=== PATIENT | female | born 1965 | race Caucasian/White ===

== ENCOUNTER 2017-08-15 21:20 | Emergency (ER) | payer SELFPAY ==
[~2017-08-15 21:20] MED LIST: BACT800T5 PO; CLIN1CAP5 PO
[2017-08-15 21:31] VITALS: BP 131/91; PULSE 66; RESP 20; TEMP 97.2; O2SAT 95
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
== END 2017-08-15 22:00 ==
LOC: NEDAMB 21:20
DX: F10.29 Alcohol dependence with unspecified alcohol-induced disorder (principal); F17.200 Nicotine dependence, unspecified, uncomplicated
CPT/HCPCS: 99281

== ENCOUNTER 2017-09-17 22:55 | Observation (INO) ==
--- NOTE | 2017-09-17 23:30 | ED ---
HPI General Chief complaint: Seizure Stated complaint: Seizure/Evac Time Seen by Provider: 09/17/17 23:19 Source: patient, EMS and other (A coworker that arrived at her bedside) History of Present Illness HPI narrative: The patient is a 51 year old female who presents to the [facility] emergency department with a history of reportedly falling at her work prior to arrival. The patient was working at the [employer] when she fell to the ground and appeared to have seizure activity. This was reported generalized clonic tonic seizure activity. It occurred for an unspecified period of time. The patient was confused after the fall. The patient denies having any prior history of seizures. The patient reports having a headache. She denies having any neck pain. She denies having any numbness or tingling to her extremities. She denies having any weakness or extremities. She was brought in by ambulance services in full C-spine immobilization on a backboard. She denies having any extremity pain. She denies having any chest pain, chest pressure, or shortness of breath. Otherwise on review of systems, she denies having any known recent fevers, cough or congestion, abdominal pain, vomiting, diarrhea, urinary symptoms, or other neurologic symptoms. The patient reports that she does drink alcohol on a daily basis. She reports that she normally has 2 drinks per day. She denies getting tremulous when she does not drink. She denies any prior history of withdrawal symptoms. Related Data Home Medications Medication Instructions Recorded Confirmed No Known Home Medications 09/18/17 09/18/17 albuterol sulfate 1 puff INHALATION Q4-6H PRN 09/18/17 09/18/17 Allergies Allergy/AdvReac Type Severity Reaction Status Date / Time No Known Allergies Unknown Uncoded 08/15/17 21:40 Review of Systems ROS Unobtainable All other systems reviewed negative except as stated in HPI PMFSH Social History Social History Substance History: No History of Abuse Second Hand Smoke Exposure: Yes Smoking Status: Current every day smoker Tobacco Type: Cigarettes Cigarettes Per Day: 4 How Often Do You Have a Drink Containing Alcohol: 4 or more times a week Recent Travel in [facility] within the Last 8 Weeks: No Recent Out of Country Travel within the Last 8 Weeks: No Exam Narrative Exam Narrative: General: The patient is a well-developed well-nourished female, tremulous on examination , otherwise in no in full C-spine immobilization on a backboard. Head and Neck exam: Head is normocephalic atraumatic. The patient has scalp tenderness on the right side with a palpable hematoma. Eyes: EOMI, pupils are equal round and reactive to light. Nose: Midline septum with pink mucous membranes Mouth: Dentition unremarkable. Moist mucus membranes. Posterior oropharynx is not erythematous. No tonsillar hypertrophy. Uvula midline. Airway patent. Neck: The patient is a cervical collar in place. The patient's trachea is midline. Cardiovascular: Regular rate and rhythm without murmurs, gallops, or rubs. No pulse deficit to the extremities on simultaneous auscultation and palpation of her radial artery. Lungs: Clear to auscultation bilaterally. No wheezes, rhonchi, or rales. Abdomen: Soft, without tenderness to palpation in all 4 quadrants of the abdomen. No guarding, rebound, or rigidity. Normal bowel sounds are audible. Negative Aranda's sign. No tenderness on palpation of McBurney's point. Extremities: No clubbing, cyanosis, or edema. 2+ pulses in all 4 extremities. No extremity pain on active range of motion. No step-off or crepitus. No shortening or rotation. Back: The patient was logrolled off the backboard. No spinous process tenderness to palpation. No costovertebral angle tenderness to palpation. Neurologic Exam: Cranial nerves 2-12 were intact on exam. Strength is 5/5 in all 4 extremities. No sensory deficits noted. The patient is noted to be tremulous. Skin Exam: No rash noted. Intact skin that is warm and dry. Course Hospital Course: During the course of the patient's emergency department visit, the patient's history, examination, and differential diagnosis were reviewed with the patient. The patient was placed on a cardiac nurse practitioner with oximetry and frequent blood pressure monitoring. The patient had IV access obtained and blood work sent for analysis. The patient was brought in by ambulance services. The patient was noted by the nurse to have generalized tonic-clonic seizure activity noted shortly after arrival. The patient was initially provided Ativan 2 mg IV to avoid a seizure. The tremulousness also improved, therefore the patient's symptoms could be related to alcohol withdrawal. Further workup is pending. Reevaluation(s) Reevaluation #1: The patient is feeling improved after Ativan 2 mg IV. The patient is back to her baseline of mentation. The patient will be admitted to the hospital for continued evaluation of recurrent seizure activity and had a head injury. The patient's results were discussed with the patient, including the plan of care. I explained that further testing and/ or monitoring is indicated based on the patient's history, examination, and/ or laboratory findings. Therefore, I recommended admission for additional evaluation. The patient expressed understanding and was agreeable with this plan. The patient was admitted to the hospital in guarded condition and sent to a bed under the care of the [facility] service. Consultations Consultation #1: The patient's case including history, pertinent physical examination findings, and laboratory studies were discussed with Dr. Oneill. It was agreed that the patient would be admitted to the [facility] service. The patient's results were discussed with the patient, including the plan of care. I explained that further testing and/ or monitoring is indicated based on the patient's history, examination, and/ or laboratory findings. Therefore, I recommended admission for additional evaluation. The patient expressed understanding and was agreeable with this plan. The patient was admitted to the hospital in guarded condition and sent to a bed under the care of the [facility] service. Initial Documented Vital Signs Temperature 98.6 F 09/17/17 23:03 Pulse Rate 75 09/17/17 23:03 Respiratory Rate 18 09/17/17 23:03 Blood Pressure 159/78 H 09/17/17 23:03 Pulse Oximetry 97 09/17/17 23:03 Last Documented Vital Signs Temperature 97.9 F 09/19/17 12:00 Pulse Rate 73 09/19/17 12:00 Respiratory Rate 16 09/19/17 12:00 Blood Pressure 140/87 09/19/17 12:00 Pulse Oximetry 96 09/19/17 12:00 Medical Decision Making MDM Narrative Medical decision making narrative: The patients laboratory studies remarkable for a CBC, CMP that shows no acute abnormality, alcohol level is less than 3. Radiology studies were remarkable for a CT scan of the brain that shows a cephalohematoma on the right side of the scalp, CT scan of the C-spine shows no acute abnormality. Differential Diagnosis Differential Diagnosis: Seizure activity caused by intracranial abnormality, versus withdrawal syndrome, versus substance intoxication, versus electrolyte abnormality Medical Records Medical records reviewed: Yes I reviewed the patient's medical records. Lab Data Lab results reviewed: Yes I reviewed the patient's lab results. Result diagrams: 09/19/17 06:25 09/19/17 06:25 Lab Results 09/17/17 09/17/17 09/17/17 Range/Units 23:40 23:40 23:40 WBC 5.2 (4.0-11.0) th/mm3 RBC 4.32 (4.00-5.30) mil/mm3 Hgb 14.1 (11.6-15.3) gm/dL Hct 42.7 (35.0-46.0) % MCV 99.0 (80.0-100.0) fL MCH 32.7 (27.0-34.0) pg MCHC 33.0 (32.0-36.0) % RDW 13.2 (11.6-17.2) % Plt Count 154 (150-450) th/mm3 MPV 7.7 (7.0-11.0) fL Neut % (Auto) 66.2 (16.0-70.0) % Lymph % (Auto) 22.9 (9.0-44.0) % Gallia % (Auto) 9.7 H (0.0-8.0) % Eos % (Auto) 0.2 (0.0-4.0) % Baso % (Auto) 1.0 (0.0-2.0) % Neut # (Auto) 3.4 (1.8-7.7) th/mm3 Lymph # (Auto) 1.2 (1.0-4.8) th/mm3 Gallia # (Auto) 0.5 (0.0-0.9) th/mm3 Eos # (Auto) 0.0 (0.0-0.4) th/mm3 Baso # (Auto) 0.1 (0.0-0.2) th/mm3 WBC Differential . Differential Comment Auto diff final Sodium 136 (136-145) meq/L Potassium 4.4 (3.5-5.1) meq/L Chloride 100 (98-107) meq/L Carbon Dioxide 23.6 (21.0-32.0) meq/L Anion Gap 12 (5-15) meq/L BUN 9 (7-18) mg/dL Creatinine 0.55 (0.50-1.00) mg/dL Estimated GFR Greater than 89 (>89) mL/min POC Glucose (68-110) mg/dl Random Glucose 88 (74-106) mg/dL Calcium 8.9 (8.5-10.1) mg/dL Magnesium 1.5 (1.5-2.5) mg/dL Total Bilirubin 1.2 H (0.2-1.0) mg/dL AST 92 H (15-37) U/L ALT 56 H (10-53) U/L Alkaline Phosphatase 69 (45-117) U/L Total Creatine Kinase 232 H (26-192) U/L CK-MB (CK-2) 3.4 (0.5-3.6) ng/mL CK-MB (CK-2) % 1.5 (0.0-4.0) % Troponin I Less than 0.02 L (0.02-0.05) ng/mL B-Natriuretic Peptide 64 (0-100) pg/mL Total Protein 7.6 (6.4-8.2) g/dL Albumin 3.9 (3.4-5.0) g/dL Lipase 59 L (73-393) U/L Urine Color (Yellw/Straw) Urine Clarity (Clear) Urine pH (5.0-8.5) Ur Specific Hertel (1.002-1.035) Urine Protein (Neg-Trace) mg/dL Urine Glucose (UA) (Negative) mg/dL Urine Ketones (Negative) mg/dL Urine Occult Blood (Negative) Urine Nitrate (Negative) Urine Bilirubin (Negative) Urine Urobilinogen (Less than 2) mg/dL Ur Leukocyte Esterase (Negative) Urine RBC (0-3) /hpf Urine WBC (0-5) /hpf Ur Squamous Epith Cells (0-5) /hpf Urine Mucus (Occasional) /lpf Urine Opiates Screen (Neg) Ur Barbiturates Screen (Neg) Ur Amphetamines Screen (Neg) U Benzodiazepines Scrn (Neg) Urine Cocaine Screen (Neg) U Cannabinoids Screen (Neg) Serum Alcohol Less than 3 (0-5) mg/dL 09/18/17 09/18/17 09/18/17 Range/Units 00:35 00:35 06:02 WBC (4.0-11.0) th/mm3 RBC (4.00-5.30) mil/mm3 Hgb (11.6-15.3) gm/dL Hct (35.0-46.0) % MCV (80.0-100.0) fL MCH (27.0-34.0) pg MCHC (32.0-36.0) % RDW (11.6-17.2) % Plt Count (150-450) th/mm3 MPV (7.0-11.0) fL Neut % (Auto) (16.0-70.0) % Lymph % (Auto) (9.0-44.0) % Gallia % (Auto) (0.0-8.0) % Eos % (Auto) (0.0-4.0) % Baso % (Auto) (0.0-2.0) % Neut # (Auto) (1.8-7.7) th/mm3 Lymph # (Auto) (1.0-4.8) th/mm3 Gallia # (Auto) (0.0-0.9) th/mm3 Eos # (Auto) (0.0-0.4) th/mm3 Baso # (Auto) (0.0-0.2) th/mm3 WBC Differential Differential Comment Sodium (136-145) meq/L Potassium (3.5-5.1) meq/L Chloride (98-107) meq/L Carbon Dioxide (21.0-32.0) meq/L Anion Gap (5-15) meq/L BUN (7-18) mg/dL Creatinine (0.50-1.00) mg/dL Estimated GFR (>89) mL/min POC Glucose 81 (68-110) mg/dl Random Glucose (74-106) mg/dL Calcium (8.5-10.1) mg/dL Magnesium (1.5-2.5) mg/dL Total Bilirubin (0.2-1.0) mg/dL AST (15-37) U/L ALT (10-53) U/L Alkaline Phosphatase (45-117) U/L Total Creatine Kinase (26-192) U/L CK-MB (CK-2) (0.5-3.6) ng/mL CK-MB (CK-2) % (0.0-4.0) % Troponin I (0.02-0.05) ng/mL B-Natriuretic Peptide (0-100) pg/mL Total Protein (6.4-8.2) g/dL Albumin (3.4-5.0) g/dL Lipase (73-393) U/L Urine Color Yellow (Yellw/Straw) Urine Clarity Hazy H (Clear) Urine pH 6.0 (5.0-8.5) Ur Specific Hertel 1.015 (1.002-1.035) Urine Protein Negative (Neg-Trace) mg/dL Urine Glucose (UA) Negative (Negative) mg/dL Urine Ketones 80 or greater (Negative) mg/dL Urine Occult Blood Negative (Negative) Urine Nitrate Negative (Negative) Urine Bilirubin Negative (Negative) Urine Urobilinogen Less than 2 (Less than 2) mg/dL Ur Leukocyte Esterase Moderate H (Negative) Urine RBC 1 (0-3) /hpf Urine WBC 54 H (0-5) /hpf Ur Squamous Epith Cells 1 (0-5) /hpf Urine Mucus Few H (Occasional) /lpf Urine Opiates Screen Neg (Neg) Ur Barbiturates Screen Neg (Neg) Ur Amphetamines Screen Neg (Neg) U Benzodiazepines Scrn Neg (Neg) Urine Cocaine Screen Neg (Neg) U Cannabinoids Screen Neg (Neg) Serum Alcohol (0-5) mg/dL 09/18/17 09/19/17 09/19/17 Range/Units 08:11 06:25 06:25 WBC 4.8 (4.0-11.0) th/mm3 RBC 4.11 (4.00-5.30) mil/mm3 Hgb 13.6 (11.6-15.3) gm/dL Hct 40.4 (35.0-46.0) % MCV 98.3 (80.0-100.0) fL MCH 33.0 (27.0-34.0) pg MCHC 33.5 (32.0-36.0) % RDW 12.9 (11.6-17.2) % Plt Count 127 L (150-450) th/mm3 MPV 8.2 (7.0-11.0) fL Neut % (Auto) 62.7 (16.0-70.0) % Lymph % (Auto) 25.4 (9.0-44.0) % Gallia % (Auto) 9.6 H (0.0-8.0) % Eos % (Auto) 1.7 (0.0-4.0) % Baso % (Auto) 0.6 (0.0-2.0) % Neut # (Auto) 3.0 (1.8-7.7) th/mm3 Lymph # (Auto) 1.2 (1.0-4.8) th/mm3 Gallia # (Auto) 0.5 (0.0-0.9) th/mm3 Eos # (Auto) 0.1 (0.0-0.4) th/mm3 Baso # (Auto) 0.0 (0.0-0.2) th/mm3 WBC Differential . Differential Comment Auto diff final Sodium 136 (136-145) meq/L Potassium 3.2 L D (3.5-5.1) meq/L Chloride 102 (98-107) meq/L Carbon Dioxide 22.1 (21.0-32.0) meq/L Anion Gap 12 (5-15) meq/L BUN 5 L (7-18) mg/dL Creatinine 0.38 L (0.50-1.00) mg/dL Estimated GFR Greater than 89 (>89) mL/min POC Glucose 78 (68-110) mg/dl Random Glucose 89 (74-106) mg/dL Calcium 8.2 L (8.5-10.1) mg/dL Magnesium (1.5-2.5) mg/dL Total Bilirubin 1.0 (0.2-1.0) mg/dL AST 65 H (15-37) U/L ALT 41 (10-53) U/L Alkaline Phosphatase 56 (45-117) U/L Total Creatine Kinase (26-192) U/L CK-MB (CK-2) (0.5-3.6) ng/mL CK-MB (CK-2) % (0.0-4.0) % Troponin I (0.02-0.05) ng/mL B-Natriuretic Peptide (0-100) pg/mL Total Protein 6.9 D (6.4-8.2) g/dL Albumin 3.4 (3.4-5.0) g/dL Lipase (73-393) U/L Urine Color (Yellw/Straw) Urine Clarity (Clear) Urine pH (5.0-8.5) Ur Specific Hertel (1.002-1.035) Urine Protein (Neg-Trace) mg/dL Urine Glucose (UA) (Negative) mg/dL Urine Ketones (Negative) mg/dL Urine Occult Blood (Negative) Urine Nitrate (Negative) Urine Bilirubin (Negative) Urine Urobilinogen (Less than 2) mg/dL Ur Leukocyte Esterase (Negative) Urine RBC (0-3) /hpf Urine WBC (0-5) /hpf Ur Squamous Epith Cells (0-5) /hpf Urine Mucus (Occasional) /lpf Urine Opiates Screen (Neg) Ur Barbiturates Screen (Neg) Ur Amphetamines Screen (Neg) U Benzodiazepines Scrn (Neg) Urine Cocaine Screen (Neg) U Cannabinoids Screen (Neg) Serum Alcohol (0-5) mg/dL Imaging Data Radiologist's impression: ITS Impressions Head CT 09/18/17 00:00 CONCLUSION: 1. Large left parieto-occipital scalp hematoma without evidence of skull fracture. 2. No acute findings in the brain. Cervical Spine CT 09/18/17 00:03 CONCLUSION: 1. No evidence of fracture or spondylolisthesis. 2. Mild spondylosis with bony neural foraminal stenosis as described above. ECG Data Attestation: I personally reviewed and interpreted this ECG as follows: Interpretation: The patient had an EKG done on arrival. The patient's EKG reveals a sinus rhythm heart rate of 83, QRS duration is 76 ms, QTC [address] segment elevation is noted per T waves are inverted in V1. Discharge Plan Discharge Disposition Patient Disposition: Left Against Medical Advice Discharge Order Discharge Orders: AMA Discharge (Routine); Ordered 09/19/17 Ordered By: Natty Cunningham Physicians Team ED Provider: Ana Rosa Echevarria Primary Care Provider: UNKNOWN, Attending Provider: Yvette Garcia Status ED Status: Left Department Discharge Information Discharge Date/Time: 09/18/17 04:26
[2017-09-17 23:54] LABS: Baso # (Auto) 0.1 th/mm3 (0.0-0.2); Eos % (Auto) 0.2 % (0.0-4.0); Hematocrit 42.7 % (35.0-46.0); Hemoglobin 14.1 gm/dL (11.6-15.3); Lymph # (Auto) 1.2 th/mm3 (1.0-4.8); Lymph % (Auto) 22.9 % (9.0-44.0); Mean Corpuscular Hemoglobin 32.7 pg (27.0-34.0); Mean Platelet Volume 7.7 fL (7.0-11.0); Mono # (Auto) 0.5 th/mm3 (0.0-0.9); Mono % (Auto) 9.7 % (0.0-8.0); Neut # (Auto) 3.4 th/mm3 (1.8-7.7); Neut % (Auto) 66.2 % (16.0-70.0); Platelet Count 154 th/mm3 (150-450); Red Blood Count 4.32 mil/mm3 (4.00-5.30); Red Cell Distribution Width 13.2 % (11.6-17.2); White Blood Count 5.2 th/mm3 (4.0-11.0)
[2017-09-18] MEDS: Sod Chloride 0.9% Inj 1,000 ML IV.CONT SCH ×7 (00:06→22:57)
[2017-09-18 00:18] LABS: Alanine Aminotransferase 56 U/L (10-53); Albumin 3.9 g/dL (3.4-5.0); Anion Gap 12 meq/L (5-15); Aspartate Aminotransferase 92 U/L (15-37); Blood Urea Nitrogen 9 mg/dL (7-18); Calcium 8.9 mg/dL (8.5-10.1); Carbon Dioxide 23.6 meq/L (21.0-32.0); Chloride 100 meq/L (98-107); Glomerular Filtration Rate Greater Than 89 mL/min (>89); Glucose,Random 88 mg/dL (74-106); Lipase 59 U/L (73-393); Magnesium 1.5 mg/dL (1.5-2.5); Potassium 4.4 meq/L (3.5-5.1); Sodium 136 meq/L (136-145)
[2017-09-18 00:21] LABS: Alkaline Phosphatase 69 U/L (45-117); Creatine Kinase 232 U/L (26-192); Total Protein 7.6 g/dL (6.4-8.2)
[2017-09-18 00:35] LABS: CKMB Percent 1.5 % (0.0-4.0); Creatine Kinase MB 3.4 ng/mL (0.5-3.6)
[2017-09-18] MEDS ORDERED: Sod Chloride 0.9% Inj 1,000 ML IV.SIG ONE (00:51)
[2017-09-18] MEDS ORDERED: Thiamine Inj 100 MG in Sodium Chlor 0.9% Inj 100 ML IV.SIG ONE (00:55)
[2017-09-18 01:28] LABS: Bilirubin,Urine Negative (Negative); Clarity,Urine Hazy (Clear); Color,Urine Yellow (Yellw/Straw); Glucose,Urine (UA) Negative (Negative); Leukocyte Esterase,Urine Moderate (Negative); Mucus,Urine Few /lpf (Occasional); Nitrite,Urine Negative (Negative); Specific Gravity,Urine 1.015 (1.002-1.035); Squamous Epithelial Cell,Urine 1 /hpf (0-5)
[2017-09-18 01:29] LABS: Amphetamine Screen,Urine Neg (Neg); Barbiturate Screen,Urine Neg (Neg); Cannabinoid Screen,Urine Neg (Neg); Cocaine Screen,Urine Neg (Neg); Opiate Screen,Urine Neg (Neg)
[2017-09-18] MEDS ORDERED: LORazepam 1 MG Tablet PO PRN (03:15)
[2017-09-18] MEDS ORDERED: Haloperidol Inj 5 MG/ML Ampul IV.PUSH PRN (03:15)
[2017-09-18] MEDS ORDERED: Bisacodyl 10 MG Supp RECTAL PRN (03:17)
--- NOTE | 2017-09-18 03:43 | P.HPIM ---
History of Present Illness Primary Care Physician: UNKNOWN History of Present Illness: This is a 51-year-old female with a PMH of Alcohol Abuse who is brought to the ER by EMS after apparent seizure-like activity at work. Patient works at [employer], coworkers witnessed patient fall to the ground and have seizure-like activity. Noted to have post ictal state at that time. While in the ER, patient had second episode of seizure. Denies previous h/o seizure. Does admit to drinking 2-3 vodka per day, hasn't drank in 2 days. On arrival, BP 159 /78, HR 75, O2 sat 97% on RA, Afebrile. CBC unremarkable. LFTs mildly elevated , otherwise chemistry unremarkable. UA positive for UTI. Urine Drug Screen negative. Alcohol negative. CT Head with large left parieto-occipital scalp hematoma, no skull fracture. CT C-spine negative for acute fracture. - Diagnosis (1) Seizure (2) Alcohol abuse (3) UTI (urinary tract infection) - Inpatient Certification If this patient has been admitted as an Inpatient: I certify that the inpatient services were ordered in accordance with Medicare regulations governing the order. This includes certification that hospital inpatient services are reasonable and necessary and in the case of services not specified as inpatient-only under 42 CFR 419.22(n), that they are appropriately provided as inpatient services in accordance to with the 2-midnight benchmark under 43 CFR 412.3(e) Review of Systems All other systems reviewed negative except as stated in HPI [facility] - History History Provided By: Patient - Medical History Medical History: Medical History (Last Updated 09/18/17 @ 02:56 by Ana Rosa Echevarria MD) Aborted ectopic Asthma - Surgical History Surgical History: Surgical History (Last Updated 09/17/17 @ 23:08 by Tonya Serrato) Hx of tonsillectomy - Tobacco History Second Hand Smoke Exposure: No Smoking Status: Current every day smoker Cigarettes Per Day: 4 - Alcohol History How Often Do You Have a Drink Containing Alcohol: 4 or more times a week - Substance Use History Substance History: No History of Abuse - Travel History Recent Travel in the [place] Within the Last 8 Weeks: No Recent Travel Out of the Country Within the Last 8 Weeks: No - Immunization History Tetanus Immunization: Unsure Hx Influenza Vaccine This Season: No Medications and Allergies Active Medications: Active Medications Acetaminophen (Tylenol) 650 mg PO Q4H PRN PRN Reason: FEVER/PAIN 1-2 Al Hydroxide/Mg Hydroxide (Milk Of Magnesia Liq) 30 ml PO Q12H PRN PRN Reason: Mild Constipation Bisacodyl (Dulcolax Supp) 10 mg RECTAL DAILY PRN PRN Reason: SEVERE CONSITIPATION Flumazenil (Romazecon Inj) 0.2 mg IV.PUSH Q1M PRN PRN Reason: OVERSEDATION Haloperidol Lactate (Haldol Inj) 1 mg IV.PUSH Q15M PRN PRN Reason: for severe agitation Sodium Chloride (Ns Inj) 1,000 mls @ 125 mls/hr IV.CONT .Q8H ILEANA Last Admin: 09/18/17 00:06 Dose: 125 mls/hr Multivitamins 10 ml/ Thiamine HCl 100 mg/ Folic Acid 1 mg/Sodium Chloride 511.2 mls @ 127.8 mls/hr IV.SIG DAILY ILEANA Sodium Chloride (Ns Inj) 1,000 mls @ 100 mls/hr IV.CONT .Q10H ILEANA Lactulose (Lactulose Liq) 30 ml PO DAILY PRN PRN Reason: SEVERE CONSITIPATION Lorazepam (Ativan) 1 mg PO Q4H PRN PRN Reason: for CIWA 8-10 Lorazepam (Ativan) 2 mg PO Q2H PRN PRN Reason: for CIWA 11-14 Lorazepam (Ativan Inj) 2 mg IV.PUSH Q2H PRN PRN Reason: for CIWA 11-14 Lorazepam (Ativan Inj) 2 mg IV.PUSH Q1H PRN PRN Reason: for CIWA 15-20 Lorazepam (Ativan Inj) 2 mg IV.PUSH Q15M PRN PRN Reason: for CIWA > 20 Lorazepam (Ativan Inj) 1 mg IV.PUSH Q4H PRN PRN Reason: for CIWA 8-10 Metoclopramide HCl (Reglan Inj) 5 mg IV.PUSH Q6H PRN; Protocol PRN Reason: NAUSEA OR VOMITING Senna/Docusate Sodium (Sabra-Colace) 1 tab PO BID [facility] Sennosides (Senokot) 17.2 mg PO Q12H PRN PRN Reason: Moderate Constipation Sodium Chloride (Ns Flush) 2 ml IV.FLUSH PRN PRN PRN Reason: FLUSH AFTER USING IV ACCESS Allergies Allergy/AdvReac Type Severity Reaction Status Date / Time No Known Allergies Unknown Uncoded 08/15/17 21:40 Exam Vital signs: Vital Signs 09/17/17 23:03 09/17/17 23:29 Temperature 98.6 F Pulse Rate 75 Respiratory Rate 18 Blood Pressure 159/78 H Pulse Oximetry 97 97 Intake & Output 09/17/17 09/17/17 09/18/17 06:59 18:59 06:59 Weight 54.683 kg Narrative: PE: GENERAL: Middle-aged white female in no acute distress. Mildly tremulous. HEENT: PERRLA, EOMI. No scleral icterus or conjunctival pallor. No lid lag or facial droop. CARDIOVASCULAR: Regular rate and rhythm. No obvious murmurs to auscultation. No chest tenderness to palpation. RESPIRATORY: No obvious rhonchi or wheezing. Clear to auscultation. Breath sounds equal bilaterally. GASTROINTESTINAL: Abdomen soft, non-tender, nondistended. BS normal. MUSCULOSKELETAL: Extremities without clubbing, cyanosis, or edema. No obvious deformities. NEUROLOGICAL: Awake, alert and oriented x4. No focal neurologic deficits. Moving both upper and lower extremities spontaneously. Results - Labs CBC & Chem 7: 09/17/17 23:40 09/17/17 23:40 Labs: Short CBC 09/17/17 Range/Units 23:40 WBC 5.2 (4.0-11.0) th/mm3 Hgb 14.1 (11.6-15.3) gm/dL Hct 42.7 (35.0-46.0) % Plt Count 154 (150-450) th/mm3 BMP 09/17/17 23:40 Sodium 136 Potassium 4.4 Chloride 100 Carbon Dioxide 23.6 BUN 9 Creatinine 0.55 Calcium 8.9 Cardiac Enzymes 09/17/17 Range/Units 23:40 Total Creatine Kinase 232 H (26-192) U/L CK-MB (CK-2) 3.4 (0.5-3.6) ng/mL Troponin I Less than 0.02 L (0.02-0.05) ng/mL Liver Function 09/17/17 Range/Units 23:40 Total Bilirubin 1.2 H (0.2-1.0) mg/dL AST 92 H (15-37) U/L ALT 56 H (10-53) U/L Alkaline Phosphatase 69 (45-117) U/L Albumin 3.9 (3.4-5.0) g/dL Urine 09/18/17 Range/Units 00:35 Urine Color Yellow (Yellw/Straw) Urine Clarity Hazy H (Clear) Urine pH 6.0 (5.0-8.5) Ur Specific [place] 1.015 (1.002-1.035) Urine Protein Negative (Neg-Trace) mg/dL Urine Glucose (UA) Negative (Negative) mg/dL - Imaging Impressions Head CT 09/18/17 00:00 CONCLUSION: 1. Large left parieto-occipital scalp hematoma without evidence of skull fracture. 2. No acute findings in the brain. Cervical Spine CT 09/18/17 00:03 CONCLUSION: 1. No evidence of fracture or spondylolisthesis. 2. Mild spondylosis with bony neural foraminal stenosis as described above. Caprini VTE Risk Assessment Caprini VTE Risk Assessment: No/Low Risk (score <= 1) Caprini Risk Assessment Model: Point Value = 1 Point Value = 2 Point Value = 3 Point Value = 5 Age 41-60 Minor surgery BMI > 25 kg/m2 Swollen legs Varicose veins or History of unexplained or recurrent spontaneous Oral contraceptives or hormone replacement Sepsis (< 1 month) Serious lung disease, including pneumonia (< 1 month) Abnormal pulmonary function Acute myocardial infarction Congestive heart failure (< 1 month) History of inflammatory bowel disease Medical patient at bed rest Age 61-74 Arthroscopic surgery Major open surgery (> 45 min) Laparoscopic surgery (> 45 min) Malignancy Confined to bed (> 72 hours) Immobilizing plaster cast Central venous access Age >= 75 History of VTE Family history of VTE Factor V Leiden Prothrombin [id number] Lupus anticoagulant Anticardiolipin antibodies Elevated serum homocysteine Heparin-induced thrombocytopenia Other congenital or acquired thrombophilia Stroke (< 1 month) Elective arthroplasty Hip, pelvis, or leg fracture Acute spinal cord injury (< 1 month) Prophylaxis Regimen: Total Risk Factor Score Risk Level Prophylaxis Regimen 0-1 Low Early ambulation 2 Moderate Order ONE of the following: *Sequential Compression Device (SCD) *Heparin 5000 units SQ BID 3-4 Higher Order ONE of the following medications: *Heparin 5000 units SQ TID *Enoxaparin/Lovenox 40 mg SQ daily (WT < 150 kg, CrCl > 30 mL/min) *Enoxaparin/Lovenox 30 mg SQ daily (WT < 150 kg, CrCl > 10-29 mL/min) *Enoxaparin/Lovenox 30 mg SQ BID (WT < 150 kg, CrCl > 30 mL/min) AND/OR *Sequential Compression Device (SCD) 5 or more Highest Order ONE of the following medications: *Heparin 5000 units SQ TID (Preferred with Epidurals) *Enoxaparin/Lovenox 40 mg SQ daily (WT < 150 kg, CrCl > 30 mL/min) *Enoxaparin/Lovenox 30 mg SQ daily (WT < 150 kg, CrCl > 10-29 mL/min) *Enoxaparin/Lovenox 30 mg SQ BID (WT < 150 kg, CrCl > 30 mL/min) AND *Sequential Compression Device (SCD) Assessment and Plan - Assessment (1) Seizure Code(s): R56.9 - Unspecified convulsions Status: Acute (2) Alcohol abuse Code(s): F10.10 - Alcohol abuse, uncomplicated Status: Acute (3) UTI (urinary tract infection) Code(s): N39.0 - Urinary tract infection, site not specified Status: Acute - Plan A/P: 1. Seizure: likely related to Alcohol Withdrawal, seizure x2, Seizure Precautions, Ativan prn, CT Head w/ scalp hematoma, CT C-Spine w/ no acute fracture, images reviewed. Admit for Observation, telemetry, Consult Neurology as needed. 2. Alcohol Abuse: w/ Alcohol Withdrawal, CIWA, Seizure Precautions, MVT/ Thiamine/Folate replacement. 3. UTI: U/a w/ UTI, start IV Rocephin, follow up cultures, IVF for hydration. 4. DVT Prophylaxis: SCD/Teds 5. Social work for d/c planning as needed. 6. Case discussed w/ ER physician at length, labs/records/imaging reviewed by me.
--- NOTE | 2017-09-18 10:40 | ECG ---
Date Performed: 09/18/2017 Time Performed: 00:56:53 PTAGE: 51 years EKG: Sinus rhythm NORMAL ECG NO PREVIOUS TRACING DOCTOR: Jose Armendariz Interpretating Date/Time 09/18/2017 10:37:48
[2017-09-18] MEDS: Multivitamin Inj 10 ML, Thiamine Inj 100 MG, Folic Acid Inj 1 MG in Sodium Chloride 0.4... IV.SIG SCH (10:56)
[2017-09-18] MEDS: Acetaminophen 325 MG Tablet PO PRN (10:57)
[2017-09-18] MEDS: Senna/Docusate Sodium 8.6/50 MG Tablet PO SCH ×2 (10:57→21:25)
--- NOTE | 2017-09-18 16:08 | MG ---
cc: James Holman MD, PhD TEST NUMBER: [id number] TECHNIQUE: A 17-channel EEG. DESCRIPTION: Background rhythm is alpha rhythm, frequency is 8 Hz. Amplitude roughly 10 microvolts. Some theta during drowsiness. No lateralizing features. Photic results in a normal driving response. Occasional muscle artifact identified. Hyperventilation is normal, with no abnormal epileptiform activity. No excessive slow wave buildup. INTERPRETATION: Normal EEG. James Holman MD, PhD FAIZA/TL , 03:57 PM , 04:06 PM
--- NOTE | 2017-09-18 16:11 | P.PN ---
Subjective Interval history: Follow up for seizure. The patient is seen just prior to EEG this morning. The patient reports lately she has been having episodes of a strange flushing sensation throughout her body and then syncopal events. She reports no prior history of seizures or syncope. She states has gone without drinking for a few days previously and never had any issues with tremors, withdrawal, or seizures. She denies any recent illness. She reports a mild headache today at site of head injury. She denies any fevers/chills, neck pain, cough, congestion, sore throat, chest pain, palpitations, shortness of breath, or abdominal/urinary complaints. Physical Exam Vital signs: Vital Signs 09/17/17 23:03 09/17/17 23:29 09/18/17 03:37 Temperature 98.6 F Pulse Rate 75 84 Respiratory Rate 18 16 Blood Pressure 159/78 H 159/85 H Pulse Oximetry 97 97 97 09/18/17 05:17 09/18/17 08:20 09/18/17 09:00 Temperature 99.0 F Pulse Rate 74 75 Respiratory Rate 16 Blood Pressure 144/92 H Pulse Oximetry 99 95 09/18/17 12:36 Temperature 98.4 F Pulse Rate 70 Respiratory Rate 18 Blood Pressure 146/85 H Pulse Oximetry 96 Intake & Output 09/17/17 09/18/17 09/18/17 18:59 06:59 18:59 Weight 54.683 kg Narrative: GENERAL: Well-nourished, well-developed middle aged female patient in [facility]. SKIN: Warm and dry. No rash. HEENT: Normocephalic. Atraumatic. Pupils equal and round. Mucous membranes pink and moist. NECK: Supple. Trachea midline. CARDIOVASCULAR: Regular rate and rhythm. No murmur appreciated. RESPIRATORY: No accessory muscle use. Clear to auscultation. Breath sounds equal bilaterally. GASTROINTESTINAL: Abdomen soft, non-tender, nondistended. Normoactive bowel sounds x4. MUSCULOSKELETAL: No obvious deformities. Extremities without clubbing, cyanosis , or edema. NEUROLOGICAL: Awake and alert. No obvious cranial nerve deficits. Motor grossly within normal limits. Moving all extremities spontaneously. Normal speech. PSYCHIATRIC: Appropriate mood and affect; insight and judgment normal. Results - Labs CBC & Chem 7: 09/17/17 23:40 07/01/18 23:40 Laboratory Results - last 24 hr 09/17/17 09/17/17 09/17/17 23:40 23:40 23:40 WBC 5.2 RBC 4.32 Hgb 14.1 Hct 42.7 MCV 99.0 MCH 32.7 MCHC 33.0 RDW 13.2 Plt Count 154 MPV 7.7 Neut % (Auto) 66.2 Lymph % (Auto) 22.9 [place] % (Auto) 9.7 H Eos % (Auto) 0.2 Baso % (Auto) 1.0 Neut # (Auto) 3.4 Lymph # (Auto) 1.2 [place] # (Auto) 0.5 Eos # (Auto) 0.0 Baso # (Auto) 0.1 WBC Differential . Differential Comment Auto diff final Sodium 136 Potassium 4.4 Chloride 100 Carbon Dioxide 23.6 Anion Gap 12 BUN 9 Creatinine 0.55 Estimated GFR Greater than 89 POC Glucose Random Glucose 88 Calcium 8.9 Magnesium 1.5 Total Bilirubin 1.2 H AST 92 H ALT 56 H Alkaline Phosphatase 69 Total Creatine Kinase 232 H CK-MB (CK-2) 3.4 CK-MB (CK-2) % 1.5 Troponin I Less than 0.02 L B-Natriuretic Peptide 64 Total Protein 7.6 Albumin 3.9 Lipase 59 L Urine Color Urine Clarity Urine pH Ur Specific [place] Urine Protein Urine Glucose (UA) Urine Ketones Urine Occult Blood Urine Nitrate Urine Bilirubin Urine Urobilinogen Ur Leukocyte Esterase Urine RBC Urine WBC Ur Squamous Epith Cells Urine Mucus Urine Opiates Screen Ur Barbiturates Screen Ur Amphetamines Screen U Benzodiazepines Scrn Urine Cocaine Screen U Cannabinoids Screen Serum Alcohol Less than 3 09/18/17 09/18/17 09/18/17 00:35 00:35 06:02 WBC RBC Hgb Hct MCV MCH MCHC RDW Plt Count MPV Neut % (Auto) Lymph % (Auto) [place] % (Auto) Eos % (Auto) Baso % (Auto) Neut # (Auto) Lymph # (Auto) [place] # (Auto) Eos # (Auto) Baso # (Auto) WBC Differential Differential Comment Sodium Potassium Chloride Carbon Dioxide Anion Gap BUN Creatinine Estimated GFR POC Glucose 81 Random Glucose Calcium Magnesium Total Bilirubin AST ALT Alkaline Phosphatase Total Creatine Kinase CK-MB (CK-2) CK-MB (CK-2) % Troponin I B-Natriuretic Peptide Total Protein Albumin Lipase Urine Color Yellow Urine Clarity Hazy H Urine pH 6.0 Ur Specific [place] 1.015 Urine Protein Negative Urine Glucose (UA) Negative Urine Ketones 80 or greater Urine Occult Blood Negative Urine Nitrate Negative Urine Bilirubin Negative Urine Urobilinogen Less than 2 Ur Leukocyte Esterase Moderate H Urine RBC 1 Urine WBC 54 H Ur Squamous Epith Cells 1 Urine Mucus Few H Urine Opiates Screen Neg Ur Barbiturates Screen Neg Ur Amphetamines Screen Neg U Benzodiazepines Scrn Neg Urine Cocaine Screen Neg U Cannabinoids Screen Neg Serum Alcohol 09/18/17 08:11 WBC RBC Hgb Hct MCV MCH MCHC RDW Plt Count MPV Neut % (Auto) Lymph % (Auto) [place] % (Auto) Eos % (Auto) Baso % (Auto) Neut # (Auto) Lymph # (Auto) [place] # (Auto) Eos # (Auto) Baso # (Auto) WBC Differential Differential Comment Sodium Potassium Chloride Carbon Dioxide Anion Gap BUN Creatinine Estimated GFR POC Glucose 78 Random Glucose Calcium Magnesium Total Bilirubin AST ALT Alkaline Phosphatase Total Creatine Kinase CK-MB (CK-2) CK-MB (CK-2) % Troponin I B-Natriuretic Peptide Total Protein Albumin Lipase Urine Color Urine Clarity Urine pH Ur Specific [place] Urine Protein Urine Glucose (UA) Urine Ketones Urine Occult Blood Urine Nitrate Urine Bilirubin Urine Urobilinogen Ur Leukocyte Esterase Urine RBC Urine WBC Ur Squamous Epith Cells Urine Mucus Urine Opiates Screen Ur Barbiturates Screen Ur Amphetamines Screen U Benzodiazepines Scrn Urine Cocaine Screen U Cannabinoids Screen Serum Alcohol - Imaging Impressions Head CT 09/18/17 00:00 CONCLUSION: 1. Large left parieto-occipital scalp hematoma without evidence of skull fracture. 2. No acute findings in the brain. Cervical Spine CT 09/18/17 00:03 CONCLUSION: 1. No evidence of fracture or spondylolisthesis. 2. Mild spondylosis with bony neural foraminal stenosis as described above. Assessment and Plan - Assessment (1) Seizure Code(s): R56.9 - Unspecified convulsions Status: Acute (2) Alcohol abuse Code(s): F10.10 - Alcohol abuse, uncomplicated Status: Acute (3) UTI (urinary tract infection) Code(s): N39.0 - Urinary tract infection, site not specified Status: Acute - Plan 51-year-old female with a PMH of Alcohol Abuse who is brought to the ER by EMS after apparent seizure-like activity at work. Patient works at [employer], coworkers witnessed patient fall to the ground and have seizure-like activity. Seizure: likely related to Alcohol Withdrawal, seizure x2 -CT Head w/ scalp hematoma, CT C-Spine w/ no acute fracture, images reviewed. -Seizure Precautions -Continue Ativan prn -monitor on telemetry -check EEG -Consult Neurology -Patient advised, no driving Alcohol Abuse: w/ Alcohol Withdrawal. -Continue CIWA -Seizure Precautions -MVT/Thiamine/Folate replacement. UTI: U/a w/ UTI -continue on IV Rocephin -will order culture to be sent -give IVF for hydration. DVT Prophylaxis: SCD/Teds Discharge Planning: Discharge pending EEG results and neurology evaluation/clearance.
[2017-09-19] MEDS: Sod Chloride 0.9% Inj 1,000 ML IV.CONT SCH ×3 (00:03→11:17)
[2017-09-19] MEDS: Acetaminophen 325 MG Tablet PO PRN (06:31)
[2017-09-19 07:07] LABS: Baso % (Auto) 0.6 % (0.0-2.0); Eos # (Auto) 0.1 th/mm3 (0.0-0.4); Eos % (Auto) 1.7 % (0.0-4.0); Hematocrit 40.4 % (35.0-46.0); Hemoglobin 13.6 gm/dL (11.6-15.3); Lymph # (Auto) 1.2 th/mm3 (1.0-4.8); Lymph % (Auto) 25.4 % (9.0-44.0); Mean Corpuscular HGB Conc 33.5 % (32.0-36.0); Mean Corpuscular Volume 98.3 fL (80.0-100.0); Mean Platelet Volume 8.2 fL (7.0-11.0); Mono # (Auto) 0.5 th/mm3 (0.0-0.9); Mono % (Auto) 9.6 % (0.0-8.0); Neut % (Auto) 62.7 % (16.0-70.0); Platelet Count 127 th/mm3 (150-450); Red Blood Count 4.11 mil/mm3 (4.00-5.30); Red Cell Distribution Width 12.9 % (11.6-17.2); White Blood Count 4.8 th/mm3 (4.0-11.0)
[2017-09-19 07:13] LABS: Alanine Aminotransferase 41 U/L (10-53); Albumin 3.4 g/dL (3.4-5.0); Alkaline Phosphatase 56 U/L (45-117); Anion Gap 12 meq/L (5-15); Aspartate Aminotransferase 65 U/L (15-37); Blood Urea Nitrogen 5 mg/dL (7-18); Calcium 8.2 mg/dL (8.5-10.1); Carbon Dioxide 22.1 meq/L (21.0-32.0); Chloride 102 meq/L (98-107); Glomerular Filtration Rate Greater Than 89 mL/min (>89); Glucose,Random 89 mg/dL (74-106); Potassium 3.2 meq/L (3.5-5.1); Sodium 136 meq/L (136-145); Total Protein 6.9 g/dL (6.4-8.2)
[2017-09-19] MEDS: Senna/Docusate Sodium 8.6/50 MG Tablet PO SCH (08:07)
[2017-09-19] MEDS: Multivitamin Inj 10 ML, Thiamine Inj 100 MG, Folic Acid Inj 1 MG in Sodium Chloride 0.4... IV.SIG SCH (10:17)
[2017-09-19] MEDS ORDERED: Potassium Chloride 25 MEQ Effervescent Tablet PO ONE (12:40)
--- NOTE | 2017-09-19 14:13 | P.PN ---
Subjective Interval history: Follow-up visit alcohol abuse, seizure. Patient seen and examined today. Reports she is doing a lot better. Notable tremors on and off but when patient lifted her arm for examination tremors were not noted. States she really wanted to go home. Does not want to wait for neurology if neurologist is not coming before 4:00. 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 Discussed with patient extensively risks of not seeing the neurologist and not able to follow medical advice. Patient verbalized understanding. States she drinks about 6 times a week, depending. Patient was tearful saying she had a DUI because she was binge drinking before but not any more because her just recently passed. 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 Discussed alcohol use and need to abstain with alcohol use. We suspect this is possible seizure withdrawal from alcohol. Verbalized understanding. Denies pain and discomfort. Denies SOB/ dyspnea. Denies chest pain, palpitations, headaches, dizziness. Denies fevers, chills, n/v/d. Denies dysuria. Physical Exam Vital signs: Vital Signs 09/18/17 17:08 09/18/17 20:05 09/18/17 21:20 Temperature 98.3 F 98.4 F Pulse Rate 154 H 80 80 Respiratory Rate 22 16 Blood Pressure 154/82 H 136/74 Pulse Oximetry 97 99 09/18/17 23:15 09/19/17 00:00 09/19/17 03:50 Temperature 98.5 F Pulse Rate 66 64 67 Respiratory Rate 16 Blood Pressure 147/77 H Pulse Oximetry 98 09/19/17 04:00 09/19/17 07:18 09/19/17 08:00 Temperature 98.4 F 98.3 F Pulse Rate 68 74 Respiratory Rate 16 18 16 Blood Pressure 153/89 H 130/98 H Pulse Oximetry 99 96 09/19/17 12:00 Temperature 97.9 F Pulse Rate 73 Respiratory Rate 16 Blood Pressure 140/87 Pulse Oximetry 96 Intake & Output 09/18/17 09/19/17 09/19/17 18:59 06:59 18:59 Intake Total 1999 611.2 / 611.2 1000 / 1000 Balance 1999 611.2 / 611.2 1000 / 1000 Intake: IV 1999 611.2 / 611.2 1000 / 1000 NS Inj 1,000 ML @ 100 mls/hr IV 1999 / 999 .CONT .Q10H ILEANA Rx#:[id number] MVI-12 Inj 10 ML Thiamine Inj 511.2 / 511.2 100 MG Folvite Inj 1 MG In 1/2 Normal Saline Inj 500 ML @ 127. 8 mls/hr IV.SIG DAILY ILEANA Rx#: [id number] Rocephin Inj 1,000 MG In NS Inj 100 / 100 100 ML @ 200 mls/hr IV.SIG Q24H ILEANA Rx#:[id number] Other: # Voids 4 4 Date of Last Bowel Movement 09/18/17 # Bowel Movements 2 Narrative: GENERAL: This is a well-nourished, well-developed patient, in no apparent distress. SKIN: Warm and dry. HEENT: Normocephalic. Pupils equal round and reactive. Nose without bleeding. Airway patent. NECK: Trachea midline. CARDIOVASCULAR: Regular rate and rhythm without murmurs, gallops, or rubs. RESPIRATORY: Clear to auscultation. Breath sounds equal bilaterally. No wheezes , rales, or rhonchi. GASTROINTESTINAL: Abdomen soft, non-tender, nondistended. Bowel Sounds normoactive x4. MUSCULOSKELETAL: Extremities without clubbing, cyanosis, or edema. NEUROLOGICAL: Awake and alert. Oriented to time, place, person. No focal neuro deficit. Moves all extremities. Normal speech. Results - Labs CBC & Chem 7: 09/19/17 06:25 09/19/17 06:25 Laboratory Results - last 24 hr 09/19/17 09/19/17 06:25 06:25 WBC 4.8 RBC 4.11 Hgb 13.6 Hct 40.4 MCV 98.3 MCH 33.0 MCHC 33.5 RDW 12.9 Plt Count 127 L MPV 8.2 Neut % (Auto) 62.7 Lymph % (Auto) 25.4 [place] % (Auto) 9.6 H Eos % (Auto) 1.7 Baso % (Auto) 0.6 Neut # (Auto) 3.0 Lymph # (Auto) 1.2 [place] # (Auto) 0.5 Eos # (Auto) 0.1 Baso # (Auto) 0.0 WBC Differential . Differential Comment Auto diff final Sodium 136 Potassium 3.2 L D Chloride 102 Carbon Dioxide 22.1 Anion Gap 12 BUN 5 L Creatinine 0.38 L Estimated GFR Greater than 89 Random Glucose 89 Calcium 8.2 L Total Bilirubin 1.0 AST 65 H ALT 41 Alkaline Phosphatase 56 Total Protein 6.9 D Albumin 3.4 Assessment and Plan - Assessment (1) Seizure Code(s): R56.9 - Unspecified convulsions Status: Acute (2) Alcohol abuse Code(s): F10.10 - Alcohol abuse, uncomplicated Status: Acute (3) UTI (urinary tract infection) Code(s): N39.0 - Urinary tract infection, site not specified Status: Acute - Plan 51-year-old female with a PMH of Alcohol Abuse who is brought to the ER by EMS after apparent seizure-like activity at work. Patient works at [employer], coworkers witnessed patient fall to the ground and have seizure-like activity. Seizure: likely related to Alcohol Withdrawal, seizure x2 -CT Head w/ scalp hematoma, CT C-Spine w/ no acute fracture, images reviewed. -Seizure Precautions -Continue Ativan prn -EEG results showed normal EEG -Consult Neurology, has not seen the patient yet. -Patient advised, no driving -Patient may sign AMA although the risk factors have been extensively discussed with her. Alcohol Abuse: w/ Alcohol Withdrawal. -Continue CIWA -Seizure Precautions -MVT/Thiamine/Folate replacement. UTI: U/a w/ UTI -IV Rocephin -Microbiology not obtained prior. -Asymptomatic. DVT Prophylaxis: SCD/Teds Code Status: Full Code Discussed Condition With: Patient, nursing Discharge Planning: Plan to DC home when cleared by neurologist.
--- NOTE | 2017-09-19 15:53 | P.AMA ---
AMA Note - AMA Note Recommended Treatment Course: Need to be seen by neurologist for seizures. Counselling for alcohol use and abuse. AMA Statement: Patient Fidelia Ratliff has decided to leave the hospital against medical advice. This patient has the capacity to refuse care and understands the risks of leaving, including permanent disability and/or , and has had an opportunity to ask questions about his/her condition. The patient has been informed that he/she may return for care at any time, and follow up has been arranged/advised. - AMA Note Discharge Disposition: Left Against Medical Advice
== END 2017-09-19 17:11 | disposition left against medical advice (07) ==
LOC: NEPHCDU 22:55 → NEPE 22:55 → INTOOBSV 09-18 03:07 → NEDA 09-18 03:07 → NEPHCDU 09-18 04:17
PROVIDERS: ADMIT Hospitalist; ATTEND Hospitalist